=== PATIENT | male | born 1975 | race Caucasian/White ===

== ENCOUNTER 2019-03-05 02:36 | Emergency (ER) | payer OTHER ==
[~2019-03-05] VITALS: Ht 188 cm; Wt 97.5 kg
--- OUTSIDE RECORDS SUMMARY | 2019-03-05 02:38 | XMS REPORT | Summary of Care ---
Author Author [facility] Address Unknown Phone Unavailable Encounter [facility]im[facility]) [id number] Date(s): 10/24/16 - 11/22/16 [facility] Discharge Disposition: Home or Self Care Attending Physician: Maximiliano Gloria MD Vital Signs No data available for this section Problem List No data available for this section Allergies, Adverse Reactions, Alerts No data available for this section Medications No data available for this section Results No data available for this section Immunizations No data available for this section Procedures No data available for this section Social History No data available for this section Assessment and Plan No data available for this section
--- OUTSIDE RECORDS SUMMARY | 2019-03-05 02:38 | XMS REPORT | Summary of Care ---
Author Author [facility] [place] Organization [facility] [place] Address Unknown Phone Unavailable Encounter [facility] Encntr_alias([facility]) [id number] Date(s): 10/02/16 - 10/02/16 [facility] [place] [address] [place] [phone] Discharge Disposition: Home or Self Care Attending [...]
--- OUTSIDE RECORDS SUMMARY | 2019-03-05 02:38 | XMS REPORT | Continuity of Care Document ---
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 Phone [facility] Unavailable Unavailable Problems Problem Status Onset Date Classification Date Reported Comments Source RIGHT ANKLE EFFUSION Active 09/05/2015 [facility] [place] Medications No Data Provided for This Section Allergies, Adverse Reactions, Alerts No Known Medication Allergies Immunizations No Data Provided for This Section Results No Data Provided for This Section Pathology Reports No Data Provided for This Section Diagnostic Reports Report Value Date Source Ankle wo contrast MRI EXAMINATION: MR right ankle without contrast HISTORY: M25.571 Pain in right ankle and joints of right foot; medial right ankle pain and swelling status post basketball injury on 09/04/2016; right ankle deltoid and anterior talofibular ligament sprains COMPARISON: There are no radiographs available for review. TECHNIQUE: Multiplanar, multisequence magnetic resonance imaging of the right ankle and hindfoot is performed with an extremity coil without contrast. FINDINGS: Ligaments: Lateral: AITFL and PITFL: The anterior/inferior tibiofibular and posterior/inferior tibiofibular syndesmotic ligaments are intact. ATFL: There is a moderate grade sprain of the anterior talofibular ligament which demonstrates diffuse thickening and increased intraligamentous signal, but no full-thickness tear. CFL: There is a low-grade sprain of the calcaneofibular ligament which demonstrates increased intraligamentous signal, but remains intact Medial: Deltoid complex: There is heterogeneous signal within the deep fibers of the deltoid ligament complex with partial loss of the normal striated appearance, but the deep fibers remain intact. There is a low to moderate grade sprain of the superficial component of the deltoid ligament complex which demonstrates thickening and increased intraligamentous signal, but no full-thickness tear. The superomedial calcaneonavicular component of the spring ligament is within normal limits. Tendons: Medial flexor: There is mild focal thickening and increased intratendinous signal within the posterior tibialis tendon at the level of the talar head just proximal to the attachment upon the medial aspect of the tarsal navicular which demonstrates underlying marrow edema. The posterior tibialis tendon remains intact with a small amount of fluid within the posterior tibialis tendon sheath. The flexor digitorum longus and flexor hallucis longus tendons are within normal limits. Peroneal: There is a small amount of fluid within the peroneal tendon sheath without intratendinous signal abnormality. Extensor: The anterior ankle extensor tendons are within normal limits. Achilles tendon: The Achilles tendon is within normal limits. Plantar fascia: Within normal limits. Muscles: There is normal signal intensity and muscle bulk of the intrinsic foot musculature. Cartilage: There is no focal chondral defect. Bone: There is focal bone marrow edema within the medial aspect of the tarsal navicular. There is also mild ill-defined marrow edema within the medial aspect of the talar neck and far anterior and distal aspect of the medial malleolus. Soft tissue: Mild subcutaneous edema is noted along the dorsum of the hindfoot and midfoot. There are small tibiotalar and posterior subtalar joint effusions. There is mild edema within Kager's fat pad. There is normal fatty signal within the sinus Tarsi. IMPRESSION: 1. Moderate grade sprain of the anterior talofibular ligament of the right ankle which demonstrates diffuse thickening and increased intraligamentous signal, but no full-thickness tear. There is also a low-grade sprain of the calcaneofibular ligament of the right ankle with increased intraligamentous signal. 2. Moderate grade sprain of the superficial component of the right ankle deltoid ligament complex with ligament thickening and increased intraligamentous signal. There is also heterogeneous signal within the deep fibers of the right ankle deltoid ligament complex with partial loss of the normal striated appearance which may represent a low-grade sprain, ligament contusion, or mild degeneration as chronic sequelae of prior low-grade sprain. 3. Focal bone marrow edema within the medial aspect of the tarsal navicular, as well as, mild ill-defined marrow edema within the medial aspect of the talar neck and far anterior and distal aspect of the medial malleolus. These foci of marrow edema are nonspecific, but likely represent sites of osseous contusion or reactive stress edema. 4. Mild right posterior tibialis tendinosis and tenosynovitis with mild focal thickening and increased intratendinous signal of the posterior tibialis tendon at the level of the talar head just proximal to the attachment upon the medial aspect of the tarsal navicular. The posterior tibialis tendon remains intact. 5. Nonspecific small right tibiotalar and posterior subtalar joint effusions. 10/02/2016 [facility] [place] Consultation Notes No Data Provided for This Section Discharge Summaries No Data Provided for This Section History and Physicals No Data Provided for This Section Vital Signs No Data Provided for This Section Encounters Location Location Details Encounter Type Encounter Number Reason For Visit Attending Provider ADM Date DC Date Status Source [facility] [place] Out[facility] Di[facility] Services [id number] Maximiliano Tabares 10/02/2016 10/03/2016 [facility] [place] [facility] [place] [facility] [id number] Maximiliano Tabares 10/24/2016 11/23/2016 [facility] [place] Procedures No Data Provided for This Section Assessment and Plan No Data Provided for This Section Plan of Care No Data Provided for This Section Social History Social History Date Source No data available for this section 11/23/2016 [facility] [place] No data available for this section 10/03/2016 [facility] [place] Family History No Data Provided for This Section Advance Directives No Data Provided for This Section Functional Status No Data Provided for This Section
[2019-03-05] MEDS ORDERED: SODIUM CHLORIDE 0.9% 1000ML 1,000 ML IV STA (02:55)
[2019-03-05] MEDS ORDERED: ONDANSETRON HCL INJ 2MG/ML 2ML 2 MG/ML VIAL IV STA (02:55)
[2019-03-05] MEDS ORDERED: LORAZEPAM INJ 2 MG/ML VIAL IV ONE (03:00)
[2019-03-05] MEDS ORDERED: PROMETHAZINE 12.5MG/ NACL 0.9% 12.5 MG/50 ML BAG IV ONE (03:00)
[2019-03-05] MEDS ORDERED: PROMETHAZINE HCL (IM) 25 MG/ML VIAL ONE (03:06)
[2019-03-05] MEDS ORDERED: SODIUM CHLORIDE 0.9% 1000ML 1,000 ML ONE (03:07)
== END 2019-03-05 06:09 | disposition home or self-care (01) ==
LOC: FSED 02:36
DX: R11.2 Nausea with vomiting, unspecified (principal); F41.1 Generalized anxiety disorder
CPT/HCPCS: 80053; 85025; 99283; J2060; J2405; J2550; J7030

== ENCOUNTER 2021-02-27 13:55 | Emergency (ER) | payer OTHER ==
[~2021-02-27] VITALS: Ht 185.4 cm; Wt 90.4 kg
[2021-02-27] MEDS ORDERED: SINGULAIR10 MG PO (14:43)
[2021-02-27] MEDS ORDERED: SERTRALINE HCL100 MG PO (14:43)
[2021-02-27] MEDS ORDERED: VASOTEC5 MG PO (14:43)
[2021-02-27] MEDS ORDERED: SODIUM CHLORIDE 0.9% 1000ML 1,000 ML ONE ×2 (14:47→16:12)
[2021-02-27] MEDS ORDERED: ONDANSETRON HCL INJ 2MG/ML 2ML 2 MG/ML VIAL ONE (14:48)
[2021-02-27] MEDS ORDERED: ONDANSETRON HCL INJ 2MG/ML 2ML 2 MG/ML VIAL IV STA (14:56)
[2021-02-27] MEDS ORDERED: PROMETHAZINE HCL (IM) 25 MG/ML VIAL IM ONE (14:59)
[2021-02-27] MEDS ORDERED: SODIUM CHLORIDE 0.9% 1000ML 1,000 ML IV ONE ×2 (15:00→16:30)
[2021-02-27] MEDS ORDERED: PROMETHAZINE 25MG/ NS 50ML (IV) IV ONE (15:00)
[2021-02-27] MEDS ORDERED: SODIUM CHLORIDE 0.9% 50ML 50 ML ONE (15:00)
[2021-02-27] MEDS ORDERED: FAMOTIDINE 20 MG/2 ML VIAL IV STA (15:22)
[2021-02-27] MEDS ORDERED: FAMOTIDINE 20 MG/2 ML VIAL IV ONE (15:35)
[2021-02-27] MEDS ORDERED: METOCLOPRAMIDE HCL 10 MG/2ML VIAL ONE (16:12)
[2021-02-27] MEDS ORDERED: METOCLOPRAMIDE HCL 10 MG/2ML VIAL IV ONE (16:30)
[2021-02-27] MEDS ORDERED: IOPAMIDOL 370 MG/ML 200 ML INFUS..BTL INJ ONE (16:51)
[2021-02-27] MEDS ORDERED: PROMETHAZINE HC25 M1 PO (17:58)
[2021-02-27] MEDS ORDERED: FAMOTIDINE40 MG PO (18:01)
[2021-02-27] MEDS ORDERED: PANTOPRAZOLE SO40 MG PO (18:02)
[2021-02-27] MEDS ORDERED: K DUR10 MEQ PO (18:05)
== END 2021-02-27 18:25 | disposition home or self-care (01) ==
LOC: FSED 15:20
DX: K29.70 Gastritis, unspecified, without bleeding (principal); R05 Cough; R93.2 Abnormal findings on diagnostic imaging of liver and biliary tract; R11.2 Nausea with vomiting, unspecified; E87.6 Hypokalemia
CPT/HCPCS: 71046; 74177; 80048; 80076; 81003; 85025; 96374; 96375; 99284; J2405; J2550; J2765; J7030; Q9967

== ENCOUNTER 2024-05-15 16:04 | Emergency (ER) | payer OTHER ==
[~2024-05-15] VITALS: Ht 185.4 cm; Wt 89.1 kg
[~2024-05-15 16:04] MED LIST: FAMOTIDINE40 MG PO; K DUR10 MEQ PO; PANTOPRAZOLE SO40 MG PO; PROMETHAZINE HC25 M1 PO; SERTRALINE HCL100 MG PO; SINGULAIR10 MG PO; VASOTEC5 MG PO
[2024-05-15] MEDS ORDERED: LISINOPRIL5 MG PO (16:18)
[2024-05-15] MEDS ORDERED: ONDANSETRON ODT4 MG PO ×2 (16:18→18:52)
[2024-05-15] MEDS: LIDOCAINE VISC 2% SOLN 15 ML UDC PO ONE (17:14)
[2024-05-15] MEDS: FAMOTIDINE 20 MG/2 ML VIAL IV STA (17:53)
[2024-05-15] MEDS: SODIUM CHLORIDE 0.9% 1000ML 1,000 ML IV ONE (17:53)
[2024-05-15] MEDS: LIDOCAINE HCL 2% LOCAL 20 ML VIAL INH ONE (18:18)
[2024-05-15] MEDS ORDERED: ZITHROMAX250 MG PO (18:51)
[2024-05-15] MEDS ORDERED: PHENERGAN SUPP25 MG RC (18:53)
[2024-05-15] MEDS ORDERED: BENZONATATE200 MG PO (18:56)
[2024-05-15] MEDS ORDERED: VENTOLIN HFA18 GM INH (18:57)
[2024-05-15] MEDS: ONDANSETRON HCL INJ 2MG/ML 2ML 2 MG/ML VIAL IV STA (19:02)
[2024-05-15] MEDS: AZITHROMYCIN 250 MG TAB PO ONE (19:03)
[2024-05-15] MEDS: ACETAMINOPHEN 325 MG TAB PO ONE (19:03)
[2024-05-15] MEDS: KETOROLAC TROMETHAMINE 30 MG/ML VIAL IV STA (19:04)
[2024-05-15 19:44] VITALS: PULSE 87; RESP 20; TEMP 98.7; O2SAT 96
== END 2024-05-15 19:44 | disposition home or self-care (01) ==
LOC: FSED 16:17
DX: R05.9 Cough, unspecified (principal); E86.0 Dehydration; E86.1 Hypovolemia; R11.2 Nausea with vomiting, unspecified; I10 Essential (primary) hypertension; F41.9 Anxiety disorder, unspecified; F32.A Depression, unspecified; K21.9 Gastro-esophageal reflux disease without esophagitis; Z11.52 Encounter for screening for COVID-19; F17.210 Nicotine dependence, cigarettes, uncomplicated
CPT/HCPCS: 0223U; 71046; 80053; 85025; 87400; 96374; 96375; 99284; J1885; J2003; J2405; J7030